=== PATIENT | female | born 1945 | race Caucasian/White ===

== ENCOUNTER 2017-01-12 17:00 | Emergency (ER) | payer OTHER ==
[2017-01-12 17:06] VITALS: BMI 24.0
--- NOTE | 2017-01-12 18:29 | PDOC ---
History of Present Illness - General History Source: Patient Exam Limitations: No Limitations - History of Present Illness Initial Comments: 01/12/17 18:24 Patient is a 71F with history of HTN here today complaining of chest pain. The pain is located in the upper left section of the chest and does not radiate. It started at 8a. The pain gets worse with palpation and does not change with inspiration. There is no associated nausea, vomiting, diaphoresis, or shortness of breath. She does complain of an associated minor headache. She denies cough, fever, chills, recent travel, history of clots, leg pain and leg swelling. <Hector Leroy - Last Filed: 01/12/17 19:22> <David Willingham - Last Filed: 01/13/17 02:12> - General Chief Complaint: Chest Pain Stated Complaint: PAIN, ACUTE Time Seen by Provider: 01/12/17 17:37 Past History - Past Medical History HTN: Yes - Suicide/Smoking/Psychosocial Hx Smoking History: Never smoked Hx Alcohol Use: No Drug/Substance Use Hx: No Substance Use Type: None <Hector Leroy - Last Filed: 01/12/17 19:22> <David Willingham - Last Filed: 01/13/17 02:12> - Past Medical History Allergies/Adverse Reactions: Allergies Allergy/AdvReac Type Severity Reaction Status Date / Time No Known Allergies Allergy Verified 01/12/17 17:06 Home Medications: Ambulatory Orders Acetaminophen [Tylenol -] 1,000 mg PO Q6H #100 tablet 12/25/15 Aspirin [ASA -] 81 mg PO DAILY 12/25/15 Brimonidine Tartrate [Alphagan 0.15% -] 1 drop OD TID 12/25/15 Chlorthalidone [Hygroton -] 50 mg PO DAILY 12/25/15 Irbesartan 300 mg PO DAILY 12/25/15 Labetalol HCl 100 mg PO BID 12/25/15 Review of Systems - Review of Systems Comments:: 01/12/17 18:26 GENERAL/CONSTITUTIONAL: No fever or chills. No weakness. HEAD, EYES, EARS, NOSE AND THROAT: No change in vision. No sore throat. CARDIOVASCULAR: Positive for chest pain. Negative for shortness of breath RESPIRATORY: No cough, wheezing, or hemoptysis. GASTROINTESTINAL: No nausea, vomiting, diarrhea or constipation. GENITOURINARY: No dysuria, frequency, or change in urination. MUSCULOSKELETAL: No joint or muscle swelling or pain. No neck or back pain. SKIN: No rash NEUROLOGIC: Positive for headache. Negative for vertigo, loss of consciousness, or change in strength/sensation. HEMATOLOGIC/LYMPHATIC: No anemia, easy bleeding, or history of blood clots. ALLERGIC/IMMUNOLOGIC: No hives or skin allergy. <Hector Leroy - Last Filed: 01/12/17 19:22> *Physical Exam - Vital Signs Last Vital Signs Temp Pulse Resp BP Pulse Ox 98.4 F 85 18 194/90 98 01/12/17 17:03 01/12/17 17:03 01/12/17 17:03 01/12/17 17:03 01/12/17 17:03 - Physical Exam Comments: 01/12/17 18:27 GENERAL: Awake, alert, and fully oriented, in no acute distress HEAD: No signs of trauma, normocephalic, atraumatic EYES: PERRLA, EOMI, sclera anicteric, conjunctiva clear ENT: Auricles normal inspection, hearing grossly normal, nares patent, oropharynx clear without exudates. Moist mucosa NECK: Normal ROM, supple, no lymphadenopathy, JVD, or masses LUNGS: No distress, speaks full sentences, clear to auscultation bilaterally HEART: Regular rate and rhythm, normal S1 and S2, no murmurs, rubs or gallops, peripheral pulses normal and equal bilaterally. ABDOMEN: Soft, nontender, normoactive bowel sounds. No guarding, no rebound. No masses EXTREMITIES: Normal inspection, Normal range of motion, no edema. No clubbing or cyanosis. NEUROLOGICAL: Cranial nerves II through XII grossly intact. Normal speech, normal gait, no focal sensorimotor deficits SKIN: Warm, Dry, normal turgor, no rashes or lesions noted. <Hector Leroy - Last Filed: 01/12/17 19:22> - Vital Signs Last Vital Signs Temp Pulse Resp BP Pulse Ox 98.4 F 85 18 194/90 98 01/12/17 17:03 01/12/17 17:03 01/12/17 17:03 01/12/17 17:03 01/12/17 17:03 <David Willingham - Last Filed: 01/13/17 02:12> Heart Score/ECG Review - History History: Slightly suspicious - Electrocardiogram EKG: Normal - Age Age: >/= 65 - Risk Factors Risk Factors Heart Score: Yes Hx Hypertension Based on the list above the patient has:: 1-2 risk factors <Hector Leroy - Last Filed: 01/12/17 19:22> ED Treatment Course - LABORATORY CBC & Chemistry Diagram: 01/12/17 19:01 01/12/17 19:01 - RADIOLOGY Radiology Studies Ordered: Category Date Time Status CHEST X-RAY PORTABLE* [RAD] Stat Radiology 01/12/17 18:17 Ordered <Hector Leroy - Last Filed: 01/12/17 19:22> - LABORATORY CBC & Chemistry Diagram: 01/12/17 19:01 01/12/17 19:01 - ADDITIONAL ORDERS Additional order review: Laboratory Results 01/13/17 01/12/17 01/12/17 00:58 19:01 19:01 PT with INR 11.20 INR 1.02 Sodium 138 Potassium 3.5 Chloride 101 Carbon Dioxide 33 H D Anion Gap 4 L BUN 14 Creatinine 0.7 Creat Clearance w eGFR > 60 Random Glucose 98 Calcium 9.3 Magnesium 1.8 Total Bilirubin 0.6 D AST 17 D ALT 26 D Alkaline Phosphatase 70 Creatine Kinase 93 111 Troponin I < 0.02 < 0.02 Total Protein 7.5 Albumin 3.9 01/12/17 19:01 RBC 3.63 MCV 88.1 MCHC 35.3 RDW 12.5 MPV 8.5 Neutrophils % 61.6 D Lymphocytes % 29.0 D Monocytes % 6.6 Eosinophils % 1.9 D Basophils % 0.9 - Medications Given in the ED: ED Medications Discontinued Medications Generic Name Dose Route Start Last Admin Trade Name Freq PRN Reason Stop Dose Admin Aspirin 162 mg 01/12/17 18:46 01/12/17 18:59 Asa - PO 01/12/17 18:47 162 mg ONCE ONE Administration Nitroglycerin 0.5 inch 01/12/17 18:47 01/12/17 18:59 Nitro-Bid 2% Paste - TD 01/12/17 18:48 0.5 inch ONCE ONE Administration <David Willingham - Last Filed: 01/13/17 02:12> Medical Decision Making - Medical Decision Making 01/12/17 18:28 Patient is a 71F with history of HTN here today with chest pain. Pain is atypical. Repeat blood pressure is 200/90. No current chest pain. Differential diagnosis includes, but is not limited to: hypertensive emergency, acs, arrhythmia. 01/12/17 19:14 EKG shows normal sinus rhythm, normal rate, normal axis, normal QT, normal WA, no st elevations <Hector Leroy - Last Filed: 01/12/17 19:22> *DC/Admit/Observation/Transfer <Hector Leroy - Last Filed: 01/12/17 19:22> <David Willingham - Last Filed: 01/13/17 02:12> Diagnosis at time of Disposition: Chest pain Qualifiers: Chest pain type: unspecified Qualified Code(s): R07.9 - Chest pain, unspecified - Discharge Dispostion Disposition: HOME Condition at time of disposition: Stable - Referrals Referrals: Artis Keating MD [Primary Care Provider] - Salvatore Deleon MD [Staff Physician] - - Patient Instructions Printed Discharge Instructions: DI for Atypical Chest Pain
[2017-01-12] MEDS ORDERED: ASPIRIN 81 MG CHEWABLE TABLETS PO ONE (18:46)
[2017-01-12] MEDS ORDERED: NITROGLYCERIN 2% OINTMENT - 1GM PACKET TD ONE ×2 (18:47→18:56)
[2017-01-12] MEDS ORDERED: ASPIRIN 81 MG CHEWABLE TABLETS ONE (18:55)
[2017-01-12 19:14] LABS: BASOPHIL 0.9 % (0-2.0); EOSINOPHIL 1.9 % (0-4.5); MCH 31.1 pg (25.7-33.7); MCHC 35.3 g/dl (32.0-36.0); MEAN CELL VOLUME 88.1 fl (80-96); MEAN PLT VOLUME 8.5 fl (7.5-11.1); NEUTROPHILS 61.6 % (42.8-82.8); PLATELET COUNT 172 K/MM3 (134-434); RDW 12.5 % (11.6-15.6); WHITE BLOOD COUNT 5.3 K/mm3 (4.0-10.0)
[2017-01-12 19:41] LABS: INR 1.02 (0.82-1.09); PROTHROMBIN TIME (PATIENT) 11.2 SEC (9.98-11.88)
[2017-01-12 19:43] LABS: ALBUMIN 3.9 g/dl (3.4-5.0); ANION GAP 4 (8-16); CALCIUM 9.3 mg/dL (8.5-10.1); CO2 33 mmol/L (21-32); CREATININE 0.7 mg/dL (0.55-1.02); GLUCOSE,RANDOM 98 mg/dL (74-106); MAGNESIUM 1.8 mg/dL (1.8-2.4); SGOT/AST 17 U/L (15-37); SGPT/ALT 26 U/L (12-78)
[2017-01-12 19:47] LABS: ALK PHOS 70 U/L (45-117); BILIRUBIN,TOTAL 0.6 mg/dL (0.2-1.0); CPK 111 IU/L (26-192); TOT PROT 7.5 g/dl (6.4-8.2); TROPONIN I < 0.02 ng/ml (0.00-0.05)
--- NOTE | 2017-01-12 20:52 | PDOC ---
Attending Attestation - Resident Resident Name: Hector Leroy - ED Attending Attestation I have performed the following: I have examined & evaluated the patient, The case was reviewed & discussed with the resident, I agree w/resident's findings & plan, Exceptions are as noted - HPI HPI: 01/12/17 20:48 71-year-old female chest pain that has occurred for the past Several hours, intermittent, lasting 1-2 minutes at a time, sharp, nonpleuritic, reproducible by palpation of the anterior chest wall. Patient underwent a nuclear stress test with Dr. Alvarado of cardiology on November 11 of this year which showed no evidence of EKG changes or chest pain and was noted to be normal. - Physicial Exam PE: 01/12/17 20:51 Patient is awake and alert, well-appearing, in no distress. Patient is afebrile and hemodynamically stable. heent-ok cta rrr sft, nt, nd - Medical Decision Making 01/12/17 20:51 Patient is 71-year-old female with history of hypertension who presents with atypical chest pain. Patient's heart score is noted to be 3. Patient had a negative nuclear stress test 2 months previously. In the ER, patient is asymptomatic and pain free. EKG shows no evidence of acute ischemia. Chest x- ray reveals no evidence of infiltrate or effusion; first set of cardiac enzymes within normal limit. I do not suspect ACS at this time. Will obtain serial cardiac enzymes and if negative, will discharge with follow-up. 01/13/17 02:11 Patient remains asymptomatic. Second set of cardiac enzymes is within normal limit. Will discharge with outpatient follow-up within next 24-48 hours.
[2017-01-13 01:38] LABS: CPK 93 IU/L (26-192); TROPONIN I < 0.02 ng/ml (0.00-0.05)
[2017-01-13 02:21] VITALS: BP 151/85; PULSE 82; TEMP 98.2
--- NOTE | 2017-01-13 14:37 | EKG ---
Test Reason : Blood Pressure : / mmHG Vent. Rate : 075 BPM Atrial Rate : 075 BPM P-R Int : 150 ms QRS Dur : 084 ms QT Int : 376 ms P-R-T Axes : 043 016 018 degrees QTc Int : 419 ms NORMAL SINUS RHYTHM NORMAL ECG WHEN COMPARED WITH ECG OF 25-DEC-2015 02:40, NO SIGNIFICANT CHANGE WAS FOUND Confirmed by DULCE MARIA RODRIGUEZ MD ([id number]) on 01/13/2017 2:37:04 PM Referred By: Confirmed By:DULCE MARIA RODRIGUEZ MD
== END 2017-01-13 02:20 | disposition home or self-care (01) ==
LOC: JER 17:00
DX: R07.9 Chest pain, unspecified (principal); I10 Essential (primary) hypertension
CPT/HCPCS: 36415; 71010-TC; 80053; 83735; 84484; 85025; 85610; 93005; 93010; 99284-25

== ENCOUNTER 2017-08-02 16:20 | Observation (INO) | payer OTHER ==
--- NOTE | 2017-08-02 16:58 | PDOC ---
History of Present Illness - History of Present Illness Initial Comments: 08/02/17 17:34 The patient is a lao speaking 71F with PMHx of HTN, who presents with 3 days of headaches and dizziness. Patient describes her headaches as intermittent , located in left occipital region, does not radiate. She states that with her headaches she sometimes experiences dizziness and loss of balance (falls toward the left side). She describes the dizziness almost like being in a corral boss and feels like things are moving around. She states that she did not take anything for the pain. Her headaches eventually get better when she lays down after some time. She denies chest pain, SOB, urinary symptoms. Denies changes in vision. PCP: Artis Keating <Katlin Martin - Last Filed: 08/02/17 17:37> <Hakeem Bennett - Last Filed: 08/02/17 18:47> - General Chief Complaint: Headache Stated Complaint: HEADACHE DIZZINESS Time Seen by Provider: 08/02/17 16:54 NIH Stroke Scale - Last Known Well Date/Time & Onset Date Last Known Well: 07/30/17 - Initial Evaluation Level of consciousness: Alert Ask patient the month and their age: Answers both correctly Ask patient to open & close eyes; make fist and let go: Obeys both correctly Best gaze (horizontal eye movement): Normal Visual field testing: No visual field loss Facial paresis (Show teeth/raise eyebrows/close eyes tight): Normal symmetrical movement Motor Function: Left Arm: Normal Motor Function: Right Arm: Normal (extends arm 90 (or 45) degrees for 10 seconds without drift Motor Function: Left Leg: Normal (extends leg 30 degrees for 5 seconds without drift) Motor Function: Right Leg: Normal (extends leg 30 degrees for 5 seconds without drift) Limb Ataxia: No ataxia Sensory(Use pinprick test arms,legs,trunk,face/side to side): Normal Best language (Describe picture, name items, read sentences): No Aphasia Dysarthria (read several words): Normal articulation Extinction and Inattention: No abnormality - Total Score NIH Stroke Scale Score: 0 <Hakeem Bennett - Last Filed: 08/02/17 18:47> Past History <Katlin Martin - Last Filed: 08/02/17 17:37> - Past Medical History COPD: No HTN: Yes - Suicide/Smoking/Psychosocial Hx Smoking History: Never smoked Information on smoking cessation initiated: No Hx Alcohol Use: No Drug/Substance Use Hx: No Substance Use Type: None <Hakeem Bennett - Last Filed: 08/02/17 18:47> - Past Medical History Allergies/Adverse Reactions: Allergies Allergy/AdvReac Type Severity Reaction Status Date / Time No Known Allergies Allergy Verified 08/02/17 16:22 Home Medications: Ambulatory Orders Amlodipine Besylate 5 mg PO DAILY 08/02/17 Aspirin [Adult Aspirin Regimen] 81 mg PO DAILY 08/02/17 Brimonidine Tartrate [Alphagan P 0.1% -] 1 drop OU TID 08/02/17 Cholecalciferol (Vitamin D3) [Vitamin D3] 50,000 unit PO WEEKLY 08/02/17 Hydrochlorothiazide [Hctz -] 25 mg PO DAILY 08/02/17 Ibuprofen 600 mg PO TID 08/02/17 Labetalol HCl [Normodyne -] 200 mg PO BID 08/02/17 Review of Systems - Review of Systems Comments:: 08/02/17 17:34 Constitutional: no recent illness; no fever ENT: no sore throat Cardiovascular: no palpitations; no chest pain Pulmonary: no cough; no trouble breathing Gastrointestinal: No nausea; no vomiting; no diarrhea Genitourinary: No urinary problems; no hematuria Skin: No rash Lymph system: No swollen glands Musculoskeletal: No joint swelling Neurological: No weakness; No numbness; +Headache; +vertigo Psychiatric:No anxiety; no depression <Katlin Martin - Last Filed: 08/02/17 17:37> *Physical Exam - Vital Signs Last Vital Signs Temp Pulse Resp BP Pulse Ox 98.4 F 81 20 180/97 99 08/02/17 16:21 08/02/17 17:29 08/02/17 17:29 08/02/17 17:29 08/02/17 17:29 - Physical Exam Comments: 08/02/17 17:35 Vitals: Triage Vital signs reviewed General Appearance: no acute distress, well nourished well developed Head: Atraumatic Eyes: Pupils equal reactive round, extraocular movement intact Neck: Supple; No Nuchal rigidity Chest Wall: Nontender Cardiac: Regular rate and rhythm, no murmurs, no rubs, no gallops Lungs: Clear to auscultation bilateral, good air movement bilaterally Abdomen: Soft, non distended, normal bowel sounds, non tender to palpation Genitourinary: Rectal: Exam deferred Extremities: Full range of motion to all extremities, no cyanosis, clubbing, or edema Skin: Warm and dry, no rashes or lesions, no rash, no petechiae Neuro: AOX3; Cranial Nerves 2-12 grossly intact, Strength intact to all extremities, Sensation intact to all extremities, unsteady gait (falls to left) . Psych: Normal mood, normal affect <Katlin Martin - Last Filed: 08/02/17 17:37> - Vital Signs Last Vital Signs Temp Pulse Resp BP Pulse Ox 98.4 F 86 20 172/75 100 08/02/17 16:21 08/02/17 16:21 08/02/17 16:21 08/02/17 16:21 08/02/17 16:21 <Hakeem Bennett - Last Filed: 08/02/17 18:47> Heart Score/ECG Review - ECG Impressions Comment:: 08/02/17 18:43 EKG performed at 5:36 PM. Demonstrates sinus rhythm 70 bpm AL interval 168, QRS 82, QTC 412. No ST elevations or T-wave inversions. Interpreted by me. <Hakeem Bennett - Last Filed: 08/02/17 18:47> ED Treatment Course - LABORATORY CBC & Chemistry Diagram: 08/02/17 17:47 08/02/17 17:47 <Hakeem Bennett - Last Filed: 08/02/17 18:47> Medical Decision Making - Medical Decision Making 08/02/17 18:413 day history of headache and gait imbalance. Headache is mostly cerebellar on the left side gait and balance is also to the left. CT head and labs with no evidence of acute pathology. EKG with no evidence of ischemia We'll observe overnight for neurology consultation <Hakeem Bennett - Last Filed: 08/02/17 18:47> *DC/Admit/Observation/Transfer - Attestations Scribe Attestion: 08/02/17 17:36 Documentation prepared by Katlin Martin, acting as nuclear medicine medical director for Hakeem Bennett MD. <Katlin Martin - Last Filed: 08/02/17 17:37> - Discharge Dispostion Admit: Yes <Sabrina,Hakeem - Last Filed: 08/02/17 18:47> Diagnosis at time of Disposition: Unsteady gait - Discharge Dispostion Condition at time of disposition: Stable
[2017-08-02] MEDS ORDERED: SODIUM CHLORIDE 0.9% 1000 ML INFUS.BAG IV ONE (16:59)
[2017-08-02 17:45] LABS: PH,URINE 7.5 (4.5-8); URINE APPEARANCE Clear; URINE BILIRUBIN Negative (NEGATIVE); URINE BLOOD Negative (NEGATIVE); URINE GLUCOSE (UA) Negative (NEGATIVE); URINE KETONE Negative (NEGATIVE); URINE NITRITE Negative (NEGATIVE); URINE PROTEIN Negative (NEGATIVE); URINE UROBILINOGEN 0.2 (0.2-1.0)
[2017-08-02 17:46] LABS: URINE COLOR YELLOW; URINE LEUK ESTERASE 1+ (NEGATIVE)
[2017-08-02 17:56] LABS: EPI CELLS FEW /HPF; URINE BACTERIA FEW /hpf (NEGATIVE); URINE RBC 0-2 /hpf (0-3)
[2017-08-02 17:57] LABS: BASO % 0.7 % (0-2.0); EOS % 1.5 % (0-4.5); HEMATOCRIT 35.4 % (32.4-45.2); HEMOGLOBIN 12.3 GM/dl (10.7-15.3); LYMPH % 27.6 % (8-40); MCH 30.4 pg (25.7-33.7); MCHC 34.8 g/dl (32.0-36.0); MEAN CELL VOLUME 87.3 fl (80-96); MEAN PLT VOLUME 8.3 fl (7.5-11.1); NEUT % 64.2 % (42.8-82.8); PLATELET COUNT 198 K/MM3 (134-434); RBC 4.06 M/mm3 (3.60-5.2); RDW 11.9 % (11.6-15.6); WHITE BLOOD COUNT 5.4 K/mm3 (4.0-10.8)
[2017-08-02 18:12] LABS: ALBUMIN 4.1 g/dl (3.5-5.0); ALK PHOS 62 U/L (32-92); ANION GAP 7 (8-16); BILIRUBIN,TOTAL 0.6 mg/dl (0.2-1.0); BLOOD UREA NITROGEN 11 mg/dl (7-18); CALCIUM 8.8 mg/dl (8.4-10.2); CHLORIDE 101 mmol/L (98-107); CO2 27 mmol/L (22-28); GLUCOSE,RANDOM 101 mg/dl (74-106); POTASSIUM 3.7 mmol/L (3.5-5.1); SGOT/AST 22 U/L (10-42); SGPT/ALT 18 U/L (10-40); SODIUM 135 mmol/L (136-145); TOT PROT 7.3 g/dl (6.4-8.3)
[2017-08-02 18:23] LABS: CREATININE < 0.8 mg/dl (0.6-1.3)
[2017-08-02] MEDS ORDERED: ASPIRIN 325 MG ENTERIC COATED TABLET (FP) PO ONE (18:46)
[2017-08-02] MEDS ORDERED: ASPIRIN 325 MG TABLET ONE (18:52)
--- NOTE | 2017-08-02 20:59 | HP ---
Admitting History and Physical - Primary Care Physician PCP: Denny Ro - Admission Chief Complaint: pain in back of head History of Present Illness: The patient is a croatian speaking 71F with PMHx of HTN, who presents with 3 days of headaches and dizziness. Patient describes her headaches as intermittent , located in left occipital region, does not radiate. She states that with her headaches she sometimes experiences dizziness and loss of balance (falls toward the left side). She describes the dizziness almost like being in a granulating blender and feels like things are moving around. She states that she did not take anything for the pain. Her headaches eventually get better when she lays down after some time. - Past Medical History Cardiovascular: Yes: HTN - Smoking History Smoking history: Never smoked - Alcohol/Substance Use Hx Alcohol Use: No Home Medications - Allergies Allergies/Adverse Reactions: Allergies Allergy/AdvReac Type Severity Reaction Status Date / Time No Known Allergies Allergy Verified 08/02/17 16:22 - Home Medications Home Medications: Ambulatory Orders Amlodipine Besylate 5 mg PO DAILY 08/02/17 Aspirin [Adult Aspirin Regimen] 81 mg PO DAILY 08/02/17 Brimonidine Tartrate [Alphagan P 0.1% -] 1 drop OU TID 08/02/17 Cholecalciferol (Vitamin D3) [Vitamin D3] 50,000 unit PO WEEKLY 08/02/17 Hydrochlorothiazide [Hctz -] 25 mg PO DAILY 08/02/17 Ibuprofen 600 mg PO TID 08/02/17 Labetalol HCl [Normodyne -] 200 mg PO BID 08/02/17 Physical Examination Vital Signs: Vital Signs Temperature 98.4 F 08/02/17 20:12 Pulse Rate 72 08/02/17 20:53 Respiratory Rate 20 08/02/17 20:53 Blood Pressure 155/83 08/02/17 20:53 O2 Sat by Pulse Oximetry (%) 100 08/02/17 20:53 Constitutional: Yes: No Distress HENT: Yes: Atraumatic Neck: Yes: Supple Cardiovascular: Yes: Regular Rate and Rhythm Respiratory: Yes: CTA Bilaterally Gastrointestinal: Yes: Normal Bowel Sounds Extremities: Yes: WNL Peripheral Pulses WNL: Yes Neurological: Yes: Alert, Oriented Labs: CBC, BMP 08/02/17 17:47 08/02/17 17:47 Problem List - Problems (1) HTN (hypertension) Code(s): I10 - ESSENTIAL (PRIMARY) HYPERTENSION (2) Unsteady gait Assessment/Plan: mri pending cardio/neuro to see pt Code(s): R26.81 - UNSTEADINESS ON FEET (3) UTI (urinary tract infection) Assessment/Plan: will send cxs Code(s): N39.0 - URINARY TRACT INFECTION, SITE NOT SPECIFIED Qualifiers: Urinary tract infection type: acute cystitis Hematuria presence: without hematuria Qualified Code(s): N30.00 - Acute cystitis without hematuria Assessment/Plan Laboratory Tests 08/02/17 08/02/17 08/02/17 17:36 17:47 17:47 WBC 5.4 RBC 4.06 Hgb 12.3 Hct 35.4 MCV 87.3 MCH 30.4 MCHC 34.8 RDW 11.9 Plt Count 198 MPV 8.3 Neutrophils % 64.2 Lymphocytes % 27.6 Monocytes % 6.0 Eosinophils % 1.5 Basophils % 0.7 Sodium 135 L Potassium 3.7 Chloride 101 Carbon Dioxide 27 Anion Gap 7 L BUN 11 Creatinine < 0.8 Creat Clearance w eGFR > 60 Random Glucose 101 Calcium 8.8 Total Bilirubin 0.6 AST 22 ALT 18 Alkaline Phosphatase 62 Total Protein 7.3 Albumin 4.1 Urine Color Yellow Urine Appearance Clear Urine pH 7.5 Ur Specific [place] 1.015 Urine Protein Negative Urine Glucose (UA) Negative Urine Ketones Negative Urine Blood Negative Urine Nitrite Negative Urine Bilirubin Negative Urine Urobilinogen 0.2 Ur Leukocyte Esterase 1+ H Urine RBC 0-2 Urine WBC 2-5 Ur Epithelial Cells Few Urine Bacteria Few Active Medications Generic Name Dose Route Start Last Admin Trade Name Esperanza PRN Reason Stop Dose Admin Amlodipine Besylate 5 mg 08/03/17 10:00 08/03/17 10:56 Norvasc - PO 5 mg DAILY CHETNA Administration Aspirin 81 mg 08/03/17 10:00 08/03/17 10:55 Ecotrin - PO 81 mg DAILY CHETNA Administration Brimonidine Tartrate 1 drop 08/02/17 22:00 08/03/17 06:13 Alphagan P 0.1% - OU 1 drop TID CHETNA Administration Hydrochlorothiazide 25 mg 08/03/17 10:00 08/03/17 10:56 Hctz - PO 25 mg DAILY CHETNA Administration Labetalol HCl 200 mg 08/02/17 22:00 08/03/17 10:56 Normodyne - PO 200 mg BID CHETNA Administration
--- NOTE | 2017-08-02 21:05 | CON.NEURO ---
Consult Consult Specialty:: NEUROLOGY-[facility] Reason for Consultation:: Dizziness - History of Present Illness History of Present Illness: The patient is a Barbadian speaking 71F with PMHx of HTN, who presents with 3 days of headaches, dizziness in addition started a week ago . Patient describes her headaches as intermittent, located in left occipital region, pressure type, does not radiate. She states that with her headaches she sometimes experiences vertigo and loss of balance (falls toward the left side), this has ocurredx 3 since yesterday. She describes the dizziness almost like being in a sweeping compound blender and feels like things are moving around. She states that she did not take anything for the pain. Her headaches eventually get better when she lays down after some time. Has been taking ASA 81mg daily.No hx. of recent trauma. - Past Medical History Cardio/Vascular: Yes: HTN - Alcohol/Substance Use Hx Alcohol Use: No - Smoking History Smoking history: Never smoked Home Medications - Allergies Allergies/Adverse Reactions: Allergies Allergy/AdvReac Type Severity Reaction Status Date / Time No Known Allergies Allergy Verified 08/02/17 16:22 - Home Medications Home Medications: Ambulatory Orders Amlodipine Besylate 5 mg PO DAILY 08/02/17 Aspirin [Adult Aspirin Regimen] 81 mg PO DAILY 08/02/17 Brimonidine Tartrate [Alphagan P 0.1% -] 1 drop OU TID 08/02/17 Cholecalciferol (Vitamin D3) [Vitamin D3] 50,000 unit PO WEEKLY 08/02/17 Hydrochlorothiazide [Hctz -] 25 mg PO DAILY 08/02/17 Ibuprofen 600 mg PO TID 08/02/17 Labetalol HCl [Normodyne -] 200 mg PO BID 08/02/17 Physical Exam-Neuro Vital Signs: Vital Signs Temperature 98.4 F 08/02/17 20:12 Pulse Rate 72 08/02/17 20:53 Respiratory Rate 20 08/02/17 20:53 Blood Pressure 155/83 08/02/17 20:53 O2 Sat by Pulse Oximetry (%) 100 08/02/17 20:53 Labs: CBC, BMP 08/02/17 17:47 08/02/17 17:47 - Neuro Exam Level Of Consciousness: Yes: Alert, Oriented to Person, Oriented to Place, Oriented to Time Speech: WNL Dominant Hand: Right Mini Mental Exam: Intact Cranial Nerves II-XII Intact: Yes Gag: Present DTR's: 1+ Left Achilles, 1+ Right Achilles, 2+ Left Bicep, 2+ Right Bicep, 2+ Left Tricep, 2+ Right Tricep, 2+ Left Brachioradialis, 2+ Right Brachioradialis Babinski: Absent Coordination: Normal: Finger to Nose Motor Strength: 5/5: Left Arm, Right Arm, Left Leg, Right Leg Gait: Normal Imaging - Results Cat Scan: Report Reviewed (Without acute changes) Assessment/Plan Pt. with lightheadedness/dizziness x 1 week, since yesterday episodes of vertigo and ataxia, now with completely normal examination. Given symptoms she may have had TIAs localizing to post. circulation. Less likely vert. dissection( i Plan: Admit to telemetry D/C ASA-Place on Plavix 75mg daily MRI brain/MRA brain. Thank Akhil proctor MD.
[2017-08-02] MEDS ORDERED: LABETALOL HCL 200 MG TABLET (FP) PO SCH (22:00)
[2017-08-02] MEDS: LABETALOL HCL 100 MG TABLET (FP) PO SCH (23:03)
[2017-08-02] MEDS: BRIMONIDINE TARTRATE 0.1% OPHTHALMIC 5 ML BOTTLE OU SCH (23:03)
[2017-08-03 00:33] VITALS: BMI 24.0
[2017-08-03] MEDS: BRIMONIDINE TARTRATE 0.1% OPHTHALMIC 5 ML BOTTLE OU SCH (06:13)
--- NOTE | 2017-08-03 09:39 | CON.CARD ---
Consult Consult Specialty:: Cardiology Referred by:: Dr. Ro Reason for Consultation:: Cardiac evaluation - History of Present Illness Chief Complaint: Dizziness, unsteady gait intermittent History of Present Illness: Patient is a 71 year old female of descent with underlying history of hypertension who presents with headache and dizziness. She also complained of unsteady gait and occipital headache. She denies chest pain, shortness of breath or palpitations. She denies paroxysmal nocturnal dyspnea or orthopnea. She denies fever or chills. She denies nausea, vomiting, diarrhea or abdominal pain. - History Source History Provided By: Patient, Family Member, Medical Record Limitations to Obtaining History: No Limitations - Past Medical History Cardio/Vascular: Yes: HTN - Alcohol/Substance Use Hx Alcohol Use: No - Smoking History Smoking history: Never smoked Have you smoked in the past 12 months: No Home Medications - Allergies Allergies/Adverse Reactions: Allergies Allergy/AdvReac Type Severity Reaction Status Date / Time No Known Allergies Allergy Verified 08/02/17 16:22 - Home Medications Home Medications: Ambulatory Orders Amlodipine Besylate 5 mg PO DAILY 08/02/17 Aspirin [Adult Aspirin Regimen] 81 mg PO DAILY 08/02/17 Brimonidine Tartrate [Alphagan P 0.1% -] 1 drop OU TID 08/02/17 Cholecalciferol (Vitamin D3) [Vitamin D3] 50,000 unit PO WEEKLY 08/02/17 Hydrochlorothiazide [Hctz -] 25 mg PO DAILY 08/02/17 Ibuprofen 600 mg PO TID 08/02/17 Labetalol HCl [Normodyne -] 200 mg PO BID 08/02/17 Review of Systems - Review of Systems Constitutional: denies: Chills, Fever Cardiovascular: denies: Chest Pain, Palpitations, Shortness of Breath Respiratory: denies: Cough, Hemoptysis, Orthopnea, PND, SOB, SOB on Exertion Gastrointestinal: denies: Abdominal Pain, Constipation, Diarrhea, Melena, Nausea , Rectal Bleeding, Vomiting Neurological: reports: Dizziness, Unsteady Gait. denies: Headache, Seizure, Syncope Vital Signs: Vital Signs Temperature 98.0 F 08/03/17 04:59 Pulse Rate 75 08/03/17 04:59 Respiratory Rate 17 08/03/17 09:13 Blood Pressure 130/63 08/03/17 04:59 O2 Sat by Pulse Oximetry (%) 100 08/03/17 09:13 HENT: Yes: Atraumatic Neck: Yes: Supple Respiratory: Yes: CTA Bilaterally Gastrointestinal: Yes: Normal Bowel Sounds, Soft. No: Tenderness Cardiovascular: Yes: Regular Rate and Rhythm JVD: No Carotid Bruit: No PMI: Non-Displaced Heart Sounds: Yes: S1, S2. No: Gallop Murmur: No: Systolic Murmur, Diastolic Murmur Edema: No - Other Data Labs, Other Data: CBC, BMP 08/02/17 17:47 08/02/17 17:47 Troponin, BNP 08/02/17 08/03/17 22:30 08:15 Troponin I < 0.03 < 0.03 Laboratory Results - last 24 hr 08/02/17 08/02/17 08/02/17 17:36 17:47 17:47 WBC 5.4 RBC 4.06 Hgb 12.3 Hct 35.4 MCV 87.3 MCH 30.4 MCHC 34.8 RDW 11.9 Plt Count 198 MPV 8.3 Neutrophils % 64.2 Lymphocytes % 27.6 Monocytes % 6.0 Eosinophils % 1.5 Basophils % 0.7 Sodium 135 L Potassium 3.7 Chloride 101 Carbon Dioxide 27 Anion Gap 7 L BUN 11 Creatinine < 0.8 Creat Clearance w eGFR > 60 Random Glucose 101 Calcium 8.8 Total Bilirubin 0.6 AST 22 ALT 18 Alkaline Phosphatase 62 Creatine Kinase Troponin I C-Reactive Protein Total Protein 7.3 Albumin 4.1 Urine RBC 0-2 Urine WBC 2-5 Ur Epithelial Cells Few Urine Bacteria Few Sinus rhythm with left atrial enlargement Echo: Pending Problem List - Problems (1) Dizziness Code(s): R42 - DIZZINESS AND GIDDINESS (2) HTN (hypertension) Code(s): I10 - ESSENTIAL (PRIMARY) HYPERTENSION Qualifiers: Hypertension type: essential hypertension Qualified Code(s): I10 - Essential (primary) hypertension (3) Unsteady gait Code(s): R26.81 - UNSTEADINESS ON FEET Assessment/Plan 1. Hypertension 2. Unsteady gait and dizziness PLAN: 1. Continue present cardiac medications including Normodyne, Amlodipine and HCTZ (uptitrate) 2. Transthoracic echocardiography to assess LV/RV and valvular function 3. Neuro input noted. MRI/MRA of brain and neck If above negative, discharge planning and follow up in office Zachery Chan MD
[2017-08-03] MEDS ORDERED: ASPIRIN COATED 81 MG TABLET.EC PO SCH (10:00)
[2017-08-03] MEDS ORDERED: HYDROCHLOROTHIAZIDE 25 MG TABLET (FP) PO SCH (10:00)
[2017-08-03] MEDS ORDERED: amLODIPine BESYLATE 5 MG TABLET (FP) PO SCH (10:00)
--- NOTE | 2017-08-03 10:16 | PN ---
Progress Note (short form) - Note Progress Note: 71F with PMHx of HTN, who presents with 3 days of headaches, dizziness in addition started a week ago . Patient describes her headaches as intermittent, located in left occipital region, pressure type,does not radiate. She states that with her headaches she sometimes experiences vertigo and loss of balance ( falls toward the left side), this has ocurredx 3 since yesterday. She describes the dizziness almost like being in a hair blender and feels like things are moving around. She states that she did not take anything for the pain. Her headaches eventually get better when she lays down after some time. Has been taking ASA 81mg daily.No hx. of recent trauma. FU : JIMENES better today, mild neck pain - Past Medical History Cardio/Vascular: Yes: HTN - Alcohol/Substance Use Hx Alcohol Use: No - Smoking History Smoking history: Never smoked Home Medications - Allergies Allergies/Adverse Reactions: Allergies Allergy/AdvReac Type Severity Reaction Status Date / Time No Known Allergies Allergy Verified 08/02/17 16:22 - Home Medications Home Medications: Ambulatory Orders Amlodipine Besylate 5 mg PO DAILY 08/02/17 Aspirin [Adult Aspirin Regimen] 81 mg PO DAILY 08/02/17 Brimonidine Tartrate [Alphagan P 0.1% -] 1 drop OU TID 08/02/17 Cholecalciferol (Vitamin D3) [Vitamin D3] 50,000 unit PO WEEKLY 08/02/17 Hydrochlorothiazide [Hctz -] 25 mg PO DAILY 08/02/17 Ibuprofen 600 mg PO TID 08/02/17 Labetalol HCl [Normodyne -] 200 mg PO BID 08/02/17 Physical Exam-Neuro Vital Signs: Vital Signs Temperature 98.0 F 08/03/17 04:59 Pulse Rate 75 08/03/17 04:59 Respiratory Rate 17 08/03/17 09:13 Blood Pressure 130/63 08/03/17 04:59 O2 Sat by Pulse Oximetry (%) 100 08/03/17 09:13 Labs: CBCD WBC 5.4 K/mm3 (4.0-10.8) 08/02/17 17:47 RBC 4.06 M/mm3 (3.60-5.2) 08/02/17 17:47 Hgb 12.3 GM/dl (10.7-15.3) 08/02/17 17:47 Hct 35.4 % (32.4-45.2) 08/02/17 17:47 MCV 87.3 fl (80-96) 08/02/17 17:47 MCHC 34.8 g/dl (32.0-36.0) 08/02/17 17:47 RDW 11.9 % (11.6-15.6) 08/02/17 17:47 Plt Count 198 K/MM3 (134-434) 08/02/17 17:47 MPV 8.3 fl (7.5-11.1) 08/02/17 17:47 CMP Sodium 135 mmol/L (136-145) L 08/02/17 17:47 Potassium 3.7 mmol/L (3.5-5.1) 08/02/17 17:47 Chloride 101 mmol/L (98-107) 08/02/17 17:47 Carbon Dioxide 27 mmol/L (22-28) 08/02/17 17:47 Anion Gap 7 (8-16) L 08/02/17 17:47 BUN 11 mg/dl (7-18) 08/02/17 17:47 Creatinine < 0.8 mg/dl (0.6-1.3) 08/02/17 17:47 Creat Clearance w eGFR > 60 (>60) 08/02/17 17:47 Calcium 8.8 mg/dl (8.4-10.2) 08/02/17 17:47 Total Bilirubin 0.6 mg/dl (0.2-1.0) 08/02/17 17:47 AST 22 U/L (10-42) 08/02/17 17:47 ALT 18 U/L (10-40) 08/02/17 17:47 Alkaline Phosphatase 62 U/L (32-92) 08/02/17 17:47 Total Protein 7.3 g/dl (6.4-8.3) 08/02/17 17:47 Albumin 4.1 g/dl (3.5-5.0) 08/02/17 17:47 - Neuro Exam Level Of Consciousness: Yes: Alert, Oriented to Person, Oriented to Place, Oriented to Time Speech: WNL Dominant Hand: Right Mini Mental Exam: Intact Cranial Nerves II-XII Intact: Yes Gag: Present DTR's: 1+ Left Achilles, 1+ Right Achilles, 2+ Left Bicep, 2+ Right Bicep, 2+ Left Tricep, 2+ Right Tricep, 2+ Left Brachioradialis, 2+ Right Brachioradialis Babinski: Absent Coordination: Normal: Finger to Nose Motor Strength: 5/5: Left Arm, Right Arm, Left Leg, Right Leg Gait: Normal Imaging - Results Cat Scan: Report Reviewed (Without acute changes) Assessment/Plan Pt. with lightheadedness/dizziness x 1 week, since yesterday episodes of vertigo and ataxia, now with completely normal examination. Given symptoms she may have had TIAs localizing to post. circulation. Less likely vert. dissection( i Plan: D/C ASA-Place on Plavix 75mg daily less likely Temporal arteritis , check ESR/CRP given JIMENES MRI brain/MRA brain, add on MRA NECK if scans (-) can be DC and FU outpt Dr Payne
--- NOTE | 2017-08-03 10:54 | EKG ---
Test Reason : Blood Pressure : / mmHG Vent. Rate : 070 BPM Atrial Rate : 070 BPM P-R Int : 168 ms QRS Dur : 082 ms QT Int : 382 ms P-R-T Axes : 035 016 020 degrees QTc Int : 412 ms NORMAL SINUS RHYTHM POSSIBLE LEFT ATRIAL ENLARGEMENT BORDERLINE ECG WHEN COMPARED WITH ECG OF 12-JAN-2017 17:16, NO SIGNIFICANT CHANGE WAS FOUND Confirmed by BERNABE ROSEN, AMADO ([id number]) on 08/03/2017 10:54:33 AM Referred By: DR BERNARD Confirmed By:AMADO KIDD MD
[2017-08-03] MEDS: LABETALOL HCL 100 MG TABLET (FP) PO SCH (10:56)
--- NOTE | 2017-08-03 12:28 | PN ---
Progress Note, Physician - Current Medication List Current Medications: Active Medications Amlodipine Besylate (Norvasc -) 5 mg PO DAILY [facility] Last Admin: 08/03/17 10:56 Dose: 5 mg Aspirin (Ecotrin -) 81 mg PO DAILY [facility] Last Admin: 08/03/17 10:55 Dose: 81 mg Brimonidine Tartrate (Alphagan P 0.1% -) 1 drop OU TID [facility] Last Admin: 08/03/17 06:13 Dose: 1 drop Hydrochlorothiazide (Hctz -) 25 mg PO DAILY [facility] Last Admin: 08/03/17 10:56 Dose: 25 mg Labetalol HCl (Normodyne -) 200 mg PO BID [facility] Last Admin: 08/03/17 10:56 Dose: 200 mg - Objective Vital Signs: Vital Signs Temperature 98.0 F 08/03/17 04:59 Pulse Rate 75 08/03/17 04:59 Respiratory Rate 17 08/03/17 09:13 Blood Pressure 130/63 08/03/17 04:59 O2 Sat by Pulse Oximetry (%) 100 08/03/17 09:13 Constitutional: Yes: Well Nourished HENT: Yes: Atraumatic Neck: Yes: Supple Cardiovascular: Yes: Regular Rate and Rhythm Respiratory: Yes: CTA Bilaterally Gastrointestinal: Yes: Normal Bowel Sounds Extremities: Yes: WNL Neurological: Yes: Alert, Oriented Labs: CBC, BMP 08/02/17 17:47 08/02/17 17:47 Problem List - Problems (1) HTN (hypertension) Assessment/Plan: better pt stable Code(s): I10 - ESSENTIAL (PRIMARY) HYPERTENSION (2) Unsteady gait Assessment/Plan: mri no new pathology Code(s): R26.81 - UNSTEADINESS ON FEET (3) Neck pain Assessment/Plan: mra...report reviewed Code(s): M54.2 - CERVICALGIA
[2017-08-03 15:22] VITALS: BP 162/72; PULSE 82; TEMP 98.2
--- NOTE | 2017-08-03 17:08 | DS ---
Physical Examination Vital Signs: Vital Signs Temperature 98.2 F 08/03/17 14:00 Pulse Rate 82 08/03/17 14:00 Respiratory Rate 18 08/03/17 14:00 Blood Pressure 162/72 08/03/17 14:00 O2 Sat by Pulse Oximetry (%) 97 08/03/17 14:00 Labs: CBC, BMP 08/02/17 17:47 08/02/17 17:47 Discharge Summary Reason For Visit: UNSTEADY GAIT Current Active Problems HTN (hypertension) (Acute) Unsteady gait (Acute) Condition: Stable - Instructions Referrals: Diaz Payne DO [Staff Physician] - Denny Ro MD [Primary Care Provider] - - Home Medications Comprehensive Discharge Medication List: Ambulatory Orders Amlodipine Besylate 5 mg PO DAILY 08/02/17 Aspirin [Adult Aspirin Regimen] 81 mg PO DAILY 08/02/17 Brimonidine Tartrate [Alphagan P 0.1% -] 1 drop OU TID 08/02/17 Cholecalciferol (Vitamin D3) [Vitamin D3] 50,000 unit PO WEEKLY 08/02/17 Hydrochlorothiazide [Hctz -] 25 mg PO DAILY 08/02/17 Ibuprofen 600 mg PO TID 08/02/17 Labetalol HCl [Normodyne -] 200 mg PO BID 08/02/17 dc if cleared by cardiology/neurology
== END 2017-08-03 18:15 | disposition home or self-care (01) ==
LOC: FER 16:20 → FM/S 20:54
PROVIDERS: ADMIT Internal Medicine; ATTEND Internal Medicine
PROC: 3E0337Z Introduction of Electrolytic and Water Balance Substance into Peripheral Vein, Percutaneous Approach (ICD-10-PCS; principal; 2017-08-02)
DX: I10 Essential (primary) hypertension (principal); R26.81 Unsteadiness on feet; M54.2 Cervicalgia; R42 Dizziness and giddiness
CPT/HCPCS: 36415; 70450-TC; 70544-TC; 70547-TC; 70551-TC; 71045-TC-FY; 80053; 81003; 81015; 82550; 84484; 85025; 86140; 93005; 93306-TC; 99285-25; G0378; J7030

== ENCOUNTER 2020-07-31 14:28 | Emergency (ER) | payer OTHER ==
[2020-07-31 14:35] VITALS: TEMP 98.5; BMI 24.5
[2020-07-31] MEDS ORDERED: ACETAMINOPHEN 325 MG TABLET (FP) PO ONE (15:19)
[2020-07-31 15:40] LABS: BASO % 0.8 % (0-2.0); HEMATOCRIT 35.4 % (32.4-45.2); HEMOGLOBIN 12.2 GM/dL (10.7-15.3); LYMPH % 28.3 % (8-40); MCH 31.1 pg (25.7-33.7); MCHC 34.4 g/dl (32.0-36.0); MEAN CELL VOLUME 90.4 fl (80-96); MEAN PLT VOLUME 8.5 fl (7.5-11.1); MONO % 6.5 % (3.8-10.2); NEUT % 62.4 % (42.8-82.8); PLATELET COUNT 199 K/MM3 (134-434); RBC 3.92 M/mm3 (3.60-5.2); RDW 12.9 % (11.6-15.6); WHITE BLOOD COUNT 5.2 K/mm3 (4.0-10.0)
[2020-07-31] MEDS ORDERED: ACETAMINOPHEN 325 MG TABLET (FP) ONE (15:53)
[2020-07-31 15:57] LABS: CHLORIDE 103 mmol/L (98-107); SODIUM 139 mmol/L (136-145)
[2020-07-31 15:58] LABS: INR 0.96 (0.83-1.09); PROTHROMBIN TIME (PATIENT) 11.8 SEC (9.7-13.0)
[2020-07-31 15:59] LABS: CALCIUM 9.2 mg/dL (8.5-10.1)
[2020-07-31 16:00] LABS: ALBUMIN 4.3 g/dl (3.4-5.0); ANION GAP 6 MMOL/L (8-16); CO2 30 mmol/L (21-32); GLUCOSE,RANDOM 100 mg/dL (74-106)
[2020-07-31 16:01] LABS: ACTIVATED PTT 26.5 SECONDS (25.2-36.5)
[2020-07-31] MEDS ORDERED: LIDOCAINE 5% TOPICAL PATCH TP ONE (16:02)
[2020-07-31 16:03] LABS: BILIRUBIN,TOTAL 0.5 mg/dL (0.2-1); CREATININE 0.8 mg/dL (0.55-1.3); SGOT/AST 17 U/L (15-37); SGPT/ALT 25 U/L (13-61)
[2020-07-31 16:05] LABS: TOT PROT 7.7 g/dl (6.4-8.2)
[2020-07-31 16:06] LABS: ALK PHOS 85 U/L (45-117)
[2020-07-31 16:07] LABS: BLOOD UREA NITROGEN 14.9 mg/dL (7-18)
[2020-07-31] MEDS ORDERED: LIDOCAINE 5% TOPICAL PATCH ONE (16:16)
[2020-07-31 17:10] VITALS: BP 140/81; PULSE 73
[2020-08-01] MEDS ORDERED: LIDOCAINE PATCH REMOVAL MC SCH (04:00)
== END 2020-07-31 19:48 | disposition home or self-care (01) ==
LOC: JER 14:28
DX: R07.82 Intercostal pain (principal)
CPT/HCPCS: 36415; 71046-TC-FY; 80053; 84484; 85025; 85610; 85730; 93005; 93010; 99285-25

== ENCOUNTER 2023-10-20 13:51 | Emergency (ER) | payer OTHER ==
[2023-10-20 13:56] VITALS: BP 140/63; PULSE 76; RESP 18; TEMP 98.2; BMI 24.7
[2023-10-20] MEDS ORDERED: ACETAMINOPHEN INJECTION 100 ML IVPB ONE (14:46)
[2023-10-20] MEDS: ACETAMINOPHEN 1000 MG/100 ML BAG IVPB ONE (14:51)
[2023-10-20 15:00] LABS: BASO % 0.8 % (0-2.0); EOS % 1.3 % (0-4.5); HEMATOCRIT 34.8 % (32.4-45.2); HEMOGLOBIN 12.3 GM/dL (10.7-15.3); LYMPH % 28.1 % (8-40); MCH 30.6 pg (25.7-33.7); MCHC 35.3 g/dl (32.0-36.0); MEAN CELL VOLUME 86.8 fl (80-96); MONO % 6.5 % (3.8-10.2); NEUT % 63.3 % (42.8-82.8); PLATELET COUNT 209 10^3/uL (134-434); RDW 12.5 % (11.6-15.6); WHITE BLOOD COUNT 5.8 K/mm3 (4.0-10.0)
[2023-10-20 15:15] LABS: URINE APPEARANCE CLEAR; URINE BILIRUBIN NEGATIVE (NEGATIVE); URINE COLOR YELLOW; URINE GLUCOSE (UA) NEGATIVE (NEGATIVE); URINE KETONE NEGATIVE (NEGATIVE); URINE LEUK ESTERASE NEGATIVE (NEGATIVE); URINE NITRITE NEGATIVE (NEGATIVE); URINE PROTEIN NEGATIVE (NEGATIVE); URINE UROBILINOGEN 0.2 mg/dL (0.2-1.0)
[2023-10-20 15:27] LABS: POTASSIUM 3.4 mmol/L (3.5-5.1)
[2023-10-20 15:29] LABS: CALCIUM 9.1 mg/dL (8.5-10.1)
[2023-10-20 15:30] LABS: ALBUMIN 4.3 g/dl (3.4-5.0); BLOOD UREA NITROGEN 18.9 mg/dL (7-18); MAGNESIUM 1.7 mg/dL (1.8-2.4)
[2023-10-20 15:33] LABS: CREATININE 0.9 mg/dL (0.55-1.3)
[2023-10-20 15:34] LABS: BILIRUBIN,TOTAL 0.8 mg/dL (0.2-1)
[2023-10-20 15:35] LABS: TOT PROT 7.7 g/dl (6.4-8.2)
== END 2023-10-20 18:27 | disposition home or self-care (01) ==
LOC: JER 13:51
PROC: 3E033NZ Introduction of Analgesics, Hypnotics, Sedatives into Peripheral Vein, Percutaneous Approach (ICD-10-PCS; principal; 2023-10-20)
DX: R10.84 Generalized abdominal pain (principal)
CPT/HCPCS: 36415; 74177-TC; 80053; 81003; 83605; 83690; 83735; 84484; 85025; 87086; 93005; 93010; 99285-25; J0131; Q9967